=== PATIENT | male | born 1955 | race Caucasian/White ===

== ENCOUNTER 2022-04-15 15:47 | Outpatient (CLI) | payer MEDICARE, BC, SELFPAY ==
[2022-04-15 17:23] LABS: Chloride* 103 mmol/L (96-114); Sodium* 137 mmol/L (135-149)
[2022-04-15 17:24] LABS: Potassium* 3.8 mmol/L (3.6-5.1)
[2022-04-15 17:26] LABS: Estimated Glomerular Filt Rate 83 ml/min
[2022-04-15 17:27] LABS: Blood Urea Nitrogen* 18 mg/dL (7-30); Calcium* 9.2 mg/dL (8.4-10.6); Carbon Dioxide* 28 mmol/L (20-32); Glucose* 96 mg/dL (60-115)
[2022-04-15 17:58] LABS: PSA Screen* 1.16 ng/mL (0.10-4.00)
== END 2022-04-15 15:48 | disposition home or self-care (01) ==
PROVIDERS: PCP Family Medicine; Visit Provider Family Medicine
DX: I10 Essential (primary) hypertension (principal); Z12.5 Encounter for screening for malignant neoplasm of prostate
CPT/HCPCS: 80048; 84153

== ENCOUNTER 2022-09-25 14:19 | Outpatient (CLI) | payer MEDICARE, BC, SELFPAY ==
--- NOTE | 2022-09-25 14:30 | MR_ITS ---
[address] [address] Phone:?[phone] Fax:?[phone] Referring Physician Information: Jean Claude Martinez M.D. [address] [facility] [address] Phone:?[phone] Fax:?[phone] Patient:Gama Dean D.O.B:?1955 Sex:?Male Phone:?[phone] [facility] MRN:?[id number] Exam Date:?09/25/2022 EXAM: MRI OF THE RIGHT SHOULDER CLINICAL INFORMATION: The patient is a 67-year-old with right shoulder pain. Evaluate for rotator cuff tear. PRIOR SURGERY: None reported. COMPARISON STUDIES: There are no prior studies available for comparison. TECHNICAL INFORMATION: Using a 1.5T MR scanner and a localizing shoulder surface coil: 3.0 mm?coronal obliques: PD, T2, STIR 3.0 mm?sagittal obliques: PD, T2 3.0 mm?axials: PD, T2 FINDINGS: Articular/Extraarticular collections: Effusion: Mild. Subacromial/subdeltoid: Mild fluid is seen within the subacromial/subdeltoid bursa, in keeping with mild bursitis. Subcoracoid: No evidence for bursitis. Osseous structures: Proximal humerus: No evidence for bony injury to the proximal humerus can be seen. There is no evidence for greater tuberosity fracture. No Hill-Sachs or reverse Hill-Sachs deformity is seen. Glenoid: No acute bony abnormality of the glenoid fossa or glenoid neck can be seen. Acromioclavicular joint: Mild to moderate changes of acromioclavicular joint arthrosis are present and can be seen on coronal series 4 image 16 and on sagittal series 7 image 13. Coracoacromial arch: Acromion morphology: Type II. No evidence for os acromiale. Acromiohumeral space: Within normal limits. Coracohumeral space: Within normal limits. Rotator cuff and deltoid: Supraspinatus: Mild to moderate changes of supraspinatus tendinosis are present. There is no well-defined full or partial-thickness tearing. No atrophic changes of the supraspinatus muscle belly are identified. Infraspinatus: No evidence for tendinosis, tearing, or associated muscle belly atrophy. Teres minor: No evidence for tendinosis, tearing, or associated muscle belly atrophy. Subscapularis: Mild to moderate subscapularis tendinosis can be seen. There is no evidence for full or partial-thickness tearing. No atrophic changes of the subscapularis muscle belly are present. Deltoid: No evidence for strain or tearing. Biceps tendon: The intra-articular and biceps sulcus portions of the biceps tendon are normal. There is no evidence for rupture, dislocation, or subluxation. Glenohumeral joint and labrum: Articular Cartilage: No chondral injuries along the articular surfaces of the glenohumeral articulation can be seen. No osteoarthritic changes are identified. Labrum: The anterior, posterior, superior, and inferior portions of the labrum appear intact. No evidence for paralabral ganglion cyst formation can be seen. Capsular Soft Tissues: No definite capsular abnormalities of the glenohumeral joint are seen. No evidence for capsular tearing is present and there are no MR signs of adhesive capsulitis. CONCLUSION: 1. Mild to moderate supraspinatus and subscapularis tendinosis. No full or partial-thickness rotator cuff tearing is seen. 2. 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 3. No definite injuries to the glenoid labrum or long head of the biceps can be seen. 4. No osteoarthritic changes of the glenohumeral articulation are present. 5. Mild glenohumeral joint effusion and mild subacromial/subdeltoid bursitis. AEC Electronically signed on 09/26/2022 8:07:00 AM by Rene Min M.D.
== END 2022-09-25 14:20 | disposition home or self-care (01) ==
LOC: MRI 14:20
PROVIDERS: PCP Family Medicine; Visit Provider Orthopaedic Surgery
DX: M25.511 Pain in right shoulder (principal); M75.101 Unspecified rotator cuff tear or rupture of right shoulder, not specified as traumatic; M16.11 Unilateral primary osteoarthritis, right hip; M25.411 Effusion, right shoulder; M75.51 Bursitis of right shoulder
CPT/HCPCS: 73221

== ENCOUNTER 2023-03-25 10:58 | Outpatient (CLI) | payer MEDICARE, BC, SELFPAY | END 2023-03-25 10:59 | disposition home or self-care (01) | PROVIDERS: PCP Family Medicine; Visit Provider Family Medicine | DX: Z12.5 Encounter for screening for malignant neoplasm of prostate (principal) | CPT/HCPCS: 84153 ==

== ENCOUNTER 2023-06-05 09:45 | Outpatient (RCR) | payer MEDICARE, BC, SELFPAY ==
--- NOTE | 2023-01-29 16:14 | PT.OPE ---
PT [facility] Outpatient Eval PT [facility] Outpatient Eval Start: 01/28/23 16:08 Freq: Status: Active Protocol: Document 01/29/23 15:16 LSL (Rec: 01/29/23 16:10 LSL [id number]) E-signed By Cici Llanes PT Physical Therapy Outpatient Evaluation Insurance Information Recert Due Date 03/28/23 Insurance Name Medicare B,Blue Cross/Blue Shield Medical Diagnosis R shoulder bursitis Treating Diagnosis pain, weakness, impaired ROM Referring MD Martinez Subjective Subjective Pt. is experiencing pain in the R shoulder and elbow about a year ago and finally went to the doctor this summer. Elbow had resolved until a week ago when I went hunting and was carrying my gun. Pt. constant low grade ache in the posterior shoulder. When I work out I really just want to hang because it seems to stretch it out, but it never really stretches it out. Carrying and reaching overhead increase my pain. I can't sleep on my R shoulder. Pt. points to posterior AC joint and GH joint interval as where pain hurts. 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 is a 67 y/o male who presents with chronic R shoulder and elbow pain. He appears to have the beginnings of a capsular pattern and most point tenderness is in the posterior cuff, so likely RC imbalance due to weakness in supraspinatus. He will benefit from treatment using therex to restore ROM and strength, manual therapy for joint and tissue mobility and modalities prn. Primary Functional Limitations carrying, washing, painting, overhead activities, sleeping Plan of Care Rehabilitation Potential Good Physical Therapy Goals SHORT TERM GOALS: (2-3 weeks) 1. Increase AROM by 10 degrees . 2. Increase PROM to 75% or greater 3. Pt. able to complete work tasks (3 more weeks of season) with pain less than 3/10. GENERAL MANAGER IN TRAINING GOALS: (4+ weeks) 1. Pt. 5/5 throughout shoulder to assist in heavier tasks associated with caretaking a golf course. 2. Pt. able to sleep on right shoulder without waking due to pain. Coordination/Communication With Referral Source Treatment Plan/Direct Interventions Electrical Stimulation,Ice/ Cold/Vasopneumatic,Joint Mobilization,Manual Therapy, Neuromuscular Re-ed,Self-Care/ Home Management,Therapeutic Exercises Frequency/Duration 2x/week 4 weeks Patient Will Be Discharged From Therapy Completion of LTG(s),Skills Plateau,Independent w/HEP, Independently Progressing Evaluation Billing Complexity Low Certification Information Physician Comment/Change : Physician NPI Number #
--- NOTE | 2023-05-14 12:21 | PT.OPDN ---
PT [facility] Outpatient Daily Note PT [facility] Outpatient Daily Note Start: 01/28/23 16:08 Freq: Status: Active Protocol: Document 05/14/23 09:34 LSL (Rec: 05/14/23 10:33 LSL [id number]) E-signed By Cici Llanes, PT PT OP Daily Progress Note Visit Information Note Type Daily Note Visit Number 13 Insurance Authorized Visits TBD Physician Authorized Visits eval & treat Insurance Information Recert Due Date 03/28/23 Insurance Name Medicare B,Blue Cross/Blue Shield Medical Diagnosis R shoulder bursitis Treating Diagnosis pain, weakness, impaired ROM Referring MD Martinez Subjective Subjective Pt. reports he golfed and didn 't have too much pain. He had one shot that he kind of felt pain in the shoulder. Shoulder is still a little achey. Elbow remains sore. I iced it this morning. Didn't get my exercises done much since going to [place]. Preferred Name Adithya Home Exercise Home Exercise Comments [facility]: [id number] doorway flexion, sleeper stretch, towel IR stretch IR TB, ER TB, scaption added 02/11/23, RTB standing ER, YTB golf swings, abducted ER, foam roller pec stretch, open book added 04/09/23 [id number] added upright row, prone hor row, and 3 plane deltoid (video) Objective Other/Pertinent Objective AROM - flexion 139, abduction 160, ER 71, IR (HBB) T12 STRENGTH - deltoid 4/5 with pain, all others 5/5 Patient Instructed in Risks/Benefits Yes Therapeutic Exercise Therapeutic Exercise Minutes (minutes) 40 Therapeutic Exercise: To Restore -UBE alt 4' L5 Functional Status -IR towel stretch with scap retraction 20x -thoracic rotation stretch seated with hold 3x ea direction with breath -deltoid 3 [address] series individually and combined with 3# 5x ea with combined being his choice to do independently so this was recorded for him on his phone -upright row 12.5# 2x10 -prone hor abduction 2# 2x10 Treatment Minutes Timed Code Treatment Minutes 40 Total Treatment Time 40 Billing Units Therapeutic Exercise Units 3 Assessment/Impression Assessment/Impression Pt. is returning from vacation and while feeling pretty good his range has decreased and his elbow is significantly impacting his ability to do his shoulder program. He should follow up with OT for care re: elbow and we will leave his chart open should he need follow up, but he has a HEP he can continue to work on independently. Plan of Care Physical Therapy Goals SHORT TERM GOALS: (2-3 weeks) 1. Increase AROM by 10 degrees . 2. Increase PROM to 75% or greater 3. Pt. able to complete work tasks (3 more weeks of season) with pain less than 3/10. VALANCE CUTTER GOALS: (4+ weeks) 1. Pt. 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 Pt. able to sleep on right shoulder without waking due to pain. 9making progress) Daily Plan of Care Change POC; See Comments Daily Plan of Care Comments Hold chart while patient continues with OT for lateral epicondylitis Recertification Information Initial Certification Date 01/29/23 Recertification Start Date 05/29/23 Recertification Due Date 06/20/23 Reasons to Continue Skilled Therapy impaired ROM, weakness, pain Rehabilitation Potential Good Continued Plan of Care and Interventions therex, manual therapy Provider Signature Shows Agreement With POC & Medical Necessity Physician Comment/Change Comment or Changes Physician NPI Number #
--- NOTE | 2023-05-26 12:13 | OT.OPOE ---
OT Outpatient Ortho Eval OT Outpatient Ortho Eval* Start: 05/22/23 12:28 Freq: Status: Active Protocol: Document 05/22/23 12:28 JASS (Rec: 05/23/23 09:29 JASS [id number]) E-signed By Aye Meyer, OTR/L, CLT OT OP Ortho Eval Details Complexity Complexity Low Insurance Information Insurance Information Blue Cross/Blue Shield Outpatient History/Precautions Current Condition/Medical Diagnosis Referring Provider Dr. 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 Social History Employment Status Retired Current Occupation Retired with seasonal job at [employer] Critical Job Demands Pull,Lift,Overhead Reach Ortho Subjective Subjective Subjective Pt. is experiencing pain in the R shoulder and elbow > a year ago and finally went to the doctor summer 2022. Elbow had resolved until he went out hunting, to which patient believes that carrying his hunting gun in the R UE triggered his pain symptoms in the R elbow to return. Reports constant low-grade ache in the posterior shoulder . When I work out I really just want to hang because it seems to stretch it out, but it never really stretches it out. Carrying and reaching overhead increase my pain. I can't sleep on my R shoulder. Pt. reports improvement in shoulder symptoms/pain after having an injection to the R shoulder by Dr. Ramirez and working with PT (has a HEP for shoulder) but now his R elbow if bothering him worse than the shoulder and we wishes to address this. Pain Assessment Pain Present Pain Present Pain Reported Location Right Elbow Description Pressure,Throbbing,Chronic Intensity 6 Hand Pinch/Brand Ambassador Strength Hand Right Brand Ambassador Strength Position 1 (lbs) 30 Brand Ambassador Strength Position 2 (lbs) 35 Lateral Pinch Strength (lbs) 16 Three Point Pinch (lbs) 10 Tip Pinch Strength (lbs) 8 Left Brand Ambassador Strength Position 1 (lbs) 45 Brand Ambassador Strength Position 2 (lbs) 50 Lateral Pinch Strength (lbs) 15 Three Point Pinch (lbs) 13 Tip Pinch Strength (lbs) 11 Comments Comments IMAGING: AP, scapular Y, and axillary lateral x-rays of the right shoulder performed 09/11/2022 were reviewed. These demonstrated mild acromioclavicular degenerative changes. No significant glenohumeral degenerative changes. No fractures or acute osseous abnormalities. MRI of the right shoulder performed 09/25/2022 [facility] was reviewed. This demonstrate [id number] tendinosis of the supraspinatus and subscapularis without evidence of full or partial-thickness rotator cuff tearing. Mild AC joint arthritis and mild subacromial/subdeltoid bursitis. Normal appearing glenohumeral joint. OT Objective Data Sensation Sensation Assessment Summary Comments Radial, ulnar, median, axillary sensation intact to light touch bilaterally. Fingers are warm well perfused with intact radial pulses bilaterally. Upper Extremity Special Tests Elbow Cozens Test Negative Left,Positive Right Upper Extremity Special Tests Comments Comments Maudsley?s test = Resisted third digit extension (+ on the R (dominant) and - on the Left side) Cozen?s test = Resisted wrist extension with radial deviation and full pronation ( + on the R (dominant) and - on the Left side) Chair lift test = Lifting the back of a chair with a three- finger pinch (thumb, index long fingers) and the elbow fully extended (+ on the R ( dominant) and - on the Left side) OT Problems Problems Problems Decreased Strength,Decreased Range of Motion,Pain,Lifting, Gripping,Pinching Other Problems Writing,Opening Containers, Dressing,Computer,Fasteners, Sleeping Patient Potential Good Assessment Assessment Assessment Adithya is a 67-year-old right- hand-dominant male presents for evaluation of chronic right elbow pain (of note, he has been seen by Ortho (Dr. Ramirez gave the right shoulder a subacromial corticosteroid injection on and PT for his R shoulder pain which has been present for approximately 18 months. Symptoms developed without any known injury- reports 75% improvement in the R shoulder). He has also been taking ibuprofen on an occasional basis. Unfortunately, he has not seen any significant improvement in his elbow pain symptoms, and it is now bothering him worse than the R shoulder. He is taking a pause from PT/ shoulder therapy and would like to be treated for his R elbow pain-this is his dominant UE. Pain in rated 6/ 10 but can be 10/10 if he bumps his R elbow or moves in a certain position. Patient is an excellent candidate for therapy, he was pleasant, alert, orientated, asked great questions in session, was an active listener to information presented to him and showed signs of motivation/ willingness to follow the presented protocol in POC. PLAN: lateral epicondylitis protocol, use of Ultrasound, Ionto, Manual treatment ( SHIKHA), development of a home exercise program that progresses as patient is able and pain symptoms decrease and patient education on biomechanics/ergonometric/ activity modifications to decrease flare-ups. Patient was provided with business card and encouraged to call or e-mail if he had any questions prior to his next treatment session. Occupational Therapy Treatment Plan - OP Potential Rehabilitation Potential Good Barriers Barriers to goal attainment Chronic, symptoms began >1 year prior No imagining to know the exact amount of damage/injury to the R elbow Set Goals Goals Set with Patient Yes Goals Goals 1. Patient will verbalize 3 activity modifications to decrease abusive/overloading of the tendons. -progressing, continue 2. 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 - progressing, continue 3. Through activity participation in skilled therapy sessions, and consistency in performing a customized HEP, patient will improve capacity of tendons and muscles to manage load in order to have less pain with ADLs, work, leisure activities and IADLs. -progressing, continue 4. From EVAL score on The Upper Extremity Functional Index (UEFI) patient will have a change in score by >9 points in order to show significant change in UE function. Score on EVAL: 58 points on EVAL 05/22/23 Treatment Plan Treatment Plan Evaluation,Edema Control, Iontophoresis,Joint Mobilization,Manual Therapy, Ultrasound,Therapeutic Exercise,Education Expected Frequency 1-2x Week Expected Duration 8-10 Weeks Home Program Home Program Home Program Initiated Home Program Specifics Tendon Glides, Ice cup massage to the lateral elbow, stretching of the flexor/ extensor group of the R forearm and R shoulder exercises will stay the same from PT program Recertification Information Recertification Information Initial Certification Date 05/22/23 Recertification Due Date 08/20/23 Click To Default 'Per treatment plan' Per treatment plan Continued Plan of Care and Interventions Per treatment plan Provider Signature Shows Agreement With POC & Medical Necessity Physician Comment/Change Comment or Changes Physician NPI Number #
== END 2023-08-06 16:25 | disposition home or self-care (01) ==
PROVIDERS: PCP Family Medicine; Visit Provider Orthopaedic Surgery
DX: M75.51 Bursitis of right shoulder (principal); M77.11 Lateral epicondylitis, right elbow; Z51.89 Encounter for other specified aftercare; R53.1 Weakness; M25.521 Pain in right elbow
CPT/HCPCS: 97032; 97033; 97035; 97110; 97112; 97140; 97161; 97165; X5282

== ENCOUNTER 2023-06-27 08:08 | Outpatient (CLI) | payer MEDICARE, BC, SELFPAY ==
--- NOTE | 2023-06-27 09:32 | W.ANESCHARGE ---
Anesthesia Charges Start Date/Time Anesthesia Start Date: 06/27/23 Anesthesia Start Time: 09:04 Stop Date/Time Anesthesia Stop Date: 06/27/23 Anesthesia Stop Time: 09:30
--- NOTE | 2023-06-27 09:39 | W.ANESCHARGE ---
Anesthesia Charges Start Date/Time Anesthesia Start Date: 06/27/23 Anesthesia Start Time: 09:04 Stop Date/Time Anesthesia Stop Date: 06/27/23 Anesthesia Stop Time: 09:30
== END 2023-06-27 08:09 | disposition home or self-care (01) ==
LOC: OP CLINIC 08:08
PROVIDERS: PCP Family Medicine; Visit Provider Internal Medicine
DX: Z12.11 Encounter for screening for malignant neoplasm of colon (principal); K63.5 Polyp of colon; K57.30 Diverticulosis of large intestine without perforation or abscess without bleeding; Z86.010 Personal history of colon polyps
CPT/HCPCS: 00811; 00812; 45380; 88305; J2704

== ENCOUNTER 2024-03-09 14:04 | Outpatient (CLI) | payer MEDICARE, BC, SELFPAY ==
--- OUTSIDE RECORDS SUMMARY | 2024-03-09 14:08 | XMS_ITS | Clinical Summary ---
Author Organization [facility] Address [address] [place] [address] Care Team Providers Care Pals Specialist Name Role Phone No Ref-Primary, Physician Primary Care Provider Allergies Active Allergy Reactions Criticality Noted Date Comments Bees Anaphylaxis High 08/14/2017 Medications EPINEPHrine (EPIPEN/ADRENAC LICK/OR ANY BX GENERIC EQUIV) 0.3 MG/0.3ML injection 2-pack Inject 0.3 mg into the muscle as needed for anaphylaxis Active RANITIDINE HCL PO Active Social History Tobacco Use Types Packs/Day Years Used Date Smoking Tobacco: Former Smokeless Tobacco: Never Alcohol Use Standard Drinks/Week Comments Not Asked 0 (1 standard drink = 0.6 oz pur e alcohol) 10/week Sex and Gender Information Value Date Recorded Sex Assigned at Not on file 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 Gender Identity Not on file Sexual Orientation Not on file Last Filed Vital Signs Vital Sign Reading Time Taken Comments Blood Pressure 166/118 08/14/2017 12:30 PM CDT Pulse 88 08/14/2017 12:30 PM CDT Temperature 37.3 C (99.1 F) 08/14/2017 12:30 PM CDT Respiratory Rate 18 08/14/2017 12:30 PM CDT Oxygen Saturation 98% 08/14/2017 12:30 PM CDT Inhaled Oxygen Concentration - - Weight 77.1 kg (170 lb) 08/14/2017 12:30 PM CDT Height 167.6 cm (5' 6) 08/14/2017 12:30 PM CDT Body Mass Index 27.44 08/14/2017 12:30 PM CDT Plan of Treatment Not on file Insurance [facility] [employer] [facility] [employer] Care Teams Pals Specialist Relationship Specialty Start Date End Date No Ref-Primary, Physician PCP - General 08/14/17
--- OUTSIDE RECORDS SUMMARY | 2024-03-09 14:08 | XMS_ITS | Clinical Summary ---
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 0 09/07/2009 Social History Tobacco Use Types Packs/Day Years Used Date Smoking Tobacco: Never Smokeless Tobacco: Never Alcohol Use Standard Drinks/Week Comments Not Asked 0 (1 standard drink = 0.6 oz pur e alcohol) Sex and Gender Information Value Date Recorded Sex Assigned at Not on file Gender Identity Not on file Sexual Orientation Not on file Obstetrics History Last Filed Vital Signs Vital Sign Reading Time Taken Comments Blood Pressure 130/81 03/13/2011 7:42 AM DEPARTMENT CLERK Pulse 77 03/13/2011 7:42 AM DEPARTMENT CLERK Temperature 36.9 C (98.4 F) 03/13/2011 7:42 AM DEPARTMENT CLERK Respiratory Rate - - Oxygen Saturation - - Inhaled Oxygen Concentration - - Weight 83.5 kg (184 lb) 03/13/2011 7:42 AM DEPARTMENT CLERK Height 165.5 cm (5' 5.16) 09/13/2010 1:16 PM CD T Body Mass Index 30.47 09/13/2010 1:16 PM CDT Plan of Treatment Health Maintenance Due Date Last Done Comments Tdap 09/23/1966 Depression screening for age 12+ 1967 BMI (ht and wt on same day) for age 18+ 09/23/1973 Hepatitis C screening for age 18-79 09/23/1973 Tetanus booster 1975 Colonoscopy through age 75 09/23/2000 Lipids for age 45-75 09/23/2000 Zoster (shingles) series for age 50+ (1 of 2) 09/24/19 06 Pneumococcal series for age 65+ (1 of 1 - PCV) 021 COVID-19 vaccine series ( - 2023- season) 4 Influenza for age 65+ 12/07/2023 Care Teams Accounting Policy Consultant Relationship Specialty Start Date End Date Moody Pena MD PCP - General 07/07/08
--- OUTSIDE RECORDS SUMMARY | 2024-03-09 14:08 | XMS_ITS | Referral Summary ---
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
== END 2024-03-09 14:05 | disposition home or self-care (01) ==
PROVIDERS: PCP Family Medicine; Visit Provider Otolaryngology
DX: K13.79 Other lesions of oral mucosa (principal)
CPT/HCPCS: 82306; 82607; 84443

== ENCOUNTER 2024-06-02 10:46 | Outpatient (CLI) | payer MEDICARE, BC, SELFPAY | END 2024-06-02 10:47 | disposition home or self-care (01) | PROVIDERS: PCP Family Medicine; Visit Provider Family Medicine | DX: I10 Essential (primary) hypertension (principal); Z12.5 Encounter for screening for malignant neoplasm of prostate | CPT/HCPCS: 80048; G0103 ==

== ENCOUNTER 2024-08-25 11:28 | Outpatient (CLI) | payer MEDICARE, BC, SELFPAY | END 2024-08-25 11:29 | disposition home or self-care (01) | PROVIDERS: PCP Family Medicine; Visit Provider Family Medicine | DX: M25.561 Pain in right knee (principal) | CPT/HCPCS: 84550; 86431 ==